=== PATIENT | female | born 1960 | race Caucasian/White ===

== ENCOUNTER 2016-10-06 01:47 | Emergency (ER) | payer BC ==
[~2016-10-06 01:47] MED LIST: AMB10 PO; ASAB PO; ATV1 PO; CYANO1000T PO; DIL2TAB PO; HARD NAILS PO; HYZAAR 100/25 T1 TAB PO; LINZESS 290 M290 MCG PO; MAXIMUM D3 PO; METHATAB10 PO; OMEGA-3 KRILL PO; PRILO PO; TOPXL50 PO
[2016-10-06 02:07] LABS: BASOPHILS 0.4 %; BASOPHILS ABSOLUTE 0.02 10/3/uL (0.0-0.16); EOSINOPHILS 3.4 %; EOSINOPHILS ABSOLUTE 0.18 10/3/uL (0.0-0.53); HEMATOCRIT 38.7 % (36.0-48.0); IMMATURE GRANULOCYTES 0.2 %; IMMATURE GRANULOCYTES ABSOLUTE 0.01 10/3/uL (0.0-0.11); LYMPHOCYTES ABSOLUTE 2.31 10/3/uL (0.67-4.30); MEAN CORPUS HGB CONC 33.6 g/dL (32.0-36.0); MEAN PLATELET VOLUME 8.7 fL (9.2-13.0); MONOCYTES 9.9 %; MONOCYTES ABSOLUTE 0.52 10/3/uL (0.21-1.20); NEUTROPHILS 42.1 %; NEUTROPHILS ABSOLUTE 2.21 10/3/uL (2.02-8.40); PLATELET COUNT 273 10/3/uL (150-400); RBC DISTRIBUTION WIDTH 13.9 % (12.0-16.0)
[2016-10-06 02:12] LABS: ER CBC TAT 0 Hrs 10 MinsNP; MANUAL DIFF NO %; MEAN CORPUSCULAR VOLUME 92.4 fL (80-100); RED CELL COUNT 4.19 10/6/uL (4.0-5.6); WHITE BLOOD CELLS 5.3 10/3/uL (4.5-10.5)
[2016-10-06 02:22] LABS: BUN (BLOOD UREA NITROGEN) 10 MG/DL (6-23); CALCIUM, SERUM 8.7 MG/DL (8.5-10.4); CHLORIDE, SERUM 96 MMOL/L (96-112); CO2 (CARBON DIOXIDE) 33 MMOL/L (24-34); GFR AFRICAN AMERICAN 116 ML/MIN (>=60); GFR NON AFRICAN AMERICAN 100 ML/MIN (>=60); GLUCOSE, SERUM 82 MG/DL (60-99); POTASSIUM, SERUM 3.3 MMOL/L (3.5-5.3); SODIUM, SERUM 137 MMOL/L (135-148)
== END 2016-10-06 04:19 | disposition home or self-care (01) ==
LOC: ER 01:47
PROVIDERS: Nurse Practitioner Acute Care
DX: R51 Headache (principal); I10 Essential (primary) hypertension; K21.9 Gastro-esophageal reflux disease without esophagitis; Z88.5 Allergy status to narcotic agent; Z79.82 Long term (current) use of aspirin; Z79.899 Other long term (current) drug therapy
CPT/HCPCS: 70450; 80048; 85025; 93005; 96374; 96375; 96376; 99285; J1200; J2765

== ENCOUNTER 2016-10-07 07:06 | Observation (INO) | payer BC ==
[2016-09-29 11:01] LABS: HEMATOCRIT 36.8 % (36.0-48.0); HEMOGLOBIN 12.3 g/dL (12.0-16.0)
[2016-09-29 11:16] LABS: BUN (BLOOD UREA NITROGEN) 9 MG/DL (6-23); CALCIUM, SERUM 9.1 MG/DL (8.5-10.4); CHLORIDE, SERUM 94 MMOL/L (96-112); CO2 (CARBON DIOXIDE) 32 MMOL/L (24-34); CREATININE 0.54 MG/DL (0.55-1.02); GFR AFRICAN AMERICAN 121 ML/MIN (>=60); GFR NON AFRICAN AMERICAN 104 ML/MIN (>=60); GLUCOSE, SERUM 98 MG/DL (60-99); POTASSIUM, SERUM 3.5 MMOL/L (3.5-5.3); SODIUM, SERUM 135 MMOL/L (135-148)
--- NOTE | ~2016-10-07 | OP ---
Record Of Operation [facility] [address] [place]. [address] NAME: BRADEN TSAI : 56 STATUS : ADM IN PAT#: [id number] AGE: 56 ADM/REG DATE : 10/07/16 MR#: [id number] REPORT SERV DATE: 10/08/16 DICTATED BY: SHERYL SULLIVAN II DATE: 10/08/16 REPORT STATUS : Draft TRANSCRIBED BY: MODL DATE: 10/08/16 DATE OF PROCEDURE: 10/07/2016 PREOPERATIVE DIAGNOSES: 1. Right upper extremity radiculopathy. 2. C4-7 spondylosis with associated stenosis, foraminal. 3. C6-7 cord compression. POSTOPERATIVE DIAGNOSES: 1. Right upper extremity radiculopathy. 2. C4-7 spondylosis with associated stenosis, foraminal. 3. C6-7 cord compression. PROCEDURE: 1. C4-5, C5-6, C6-7 anterior interbody arthrodesis. 2. Application of prosthetic devices at C4-5, C5-6, C6-7. 3. Use of anterior instrumentation, C4-7 (four segments). 4. Use of allograft substitute and bone marrow aspirate. 5. Use of the microscope. SURGEON: Sheryl Sullivan M.D. FLUIDS: 1200 mL LR. ESTIMATED BLOOD LOSS: 25 mL. DRAINS: One drain. COMPLICATIONS: No complications. ANTIBIOTIC: Preoperatively. IMPLANTS: Alphatec. PREOPERATIVE HISTORY: This is a very friendly 56-year-old female, who is known to me through the office but also her , who is a patient and has been a patient for over 10 years. She reports a significant history of radiating pain from the neck into the arm. The pain radiates into the periscapular region and down the arm in a radicular manner. She reports associated numbness and tingling. We discussed the pros and cons of continuing nonoperative care versus surgery. She and I discussed this as well as with her , Ed. We discussed the fact that risks of course were present but overall, the surgery had a reasonable safety profile. We discussed the risk of difficulty swallowing, vocal cord paralysis, spinal cord injury, and a small chance of stroke and . We discussed the ability of the surgery to help. Specifically, we discussed the rates of success versus failure for the surgery to help arm pain and neck pain respectively. Record Of Operation [facility] [address] [place]. [address] NAME: BRADEN TSAI : 56 STATUS : ADM IN PAT#: [id number] AGE: 56 ADM/REG DATE : 10/07/16 MR#: [id number] REPORT SERV DATE: 10/08/16 DICTATED BY: SHERYL SULLIVAN II DATE: 10/08/16 REPORT STATUS : Draft TRANSCRIBED BY: FER DATE: 10/08/16 DESCRIPTION OF PROCEDURE: After informed consent was obtained, the patient was brought to the operating room at her request and general anesthesia achieved. She was placed in the supine position, and the neck and iliac crest were prepped and draped in a sterile fashion. Then, 5 mL of bone marrow were aspirated from the iliac crest, followed by a right-sided longitudinal incision. The interval was explored and the deep cervical fascia incised. The subperiosteal exposure was completed, and the [employer] retractor was placed underneath the longus colli muscles. Next, the [place] pins were placed, followed by use of the microscope. Under microscopic visualization, the C4-5 level was addressed with discectomy. The pituitary rongeurs, Kerrison rongeurs, and the curettes were used to create parallel endplates as well as remove the posterior vertebral body osteophytes. The anterior canal was now well decompressed with removal of the osteophytes and the posterior longitudinal ligament. The foraminotomies were completed. There was significant osteophytosis, especially on the right. The prosthetic device was now chosen and placed at C4-5. This contained allograft substitute and bone marrow aspirate. Next, the C5-6 level was addressed in a similar manner. There was even worse hypertrophy of the uncinate joint on the right side at C5-6. The disc was now removed, and the severe foraminal osteophytes were removed to decompress the exiting nerve roots. The cord was also decompressed after removal of the posterior longitudinal ligament. The prosthetic device was then trialed and chosen and placed at C5-6. Once again, this contained allograft substitute and bone marrow aspirate. Lastly, the C6-7 level was addressed in a similar manner with discectomy, endplate preparation as well as removal of the posterior longitudinal ligament and removal of the significant foraminal osteophytes. The prosthetic device was placed at C6-7. After the [place] pins were removed, the anterior fixation device was placed. Please note, this was a separate plate and screw construct, and two screws were applied into C4, C5, C6, and C7. Multiplanar imaging confirmed acceptable placement of the implants. A deep drain was placed secondary to mild cancellous bone bleeding and the standard closure performed and the patient extubated and transferred to PACU in stable condition. I spoke with her as well as her son and daughter and extended family afterwards. We had a good discussion, and I showed them the intraoperative fluoroscopy image, giving them the details of the intraoperative findings. RILEY/FER Sheryl Sullivan II, M.D. / [id number]
[2016-10-09] MEDS ORDERED: DSS PO (10:53)
[2016-10-09] MEDS ORDERED: MSCONT15 PO (10:59)
[2016-10-09] MEDS ORDERED: V5 PO (11:00)
== END 2016-10-09 13:03 | disposition home or self-care (01) ==
LOC: SDC 07:06 → 1SO 14:39
PROVIDERS: Orthopaedic Surgery
PROC: 0RG20A0 Fusion of 2 or more Cervical Vertebral Joints with Interbody Fusion Device, Anterior Approach, Anterior Column, Open Approach (ICD-10-PCS; 2016-10-07)
PROC: 0RB30ZZ Excision of Cervical Vertebral Disc, Open Approach (ICD-10-PCS; 2016-10-07)
PROC: 079T3ZX Drainage of Bone Marrow, Percutaneous Approach, Diagnostic (ICD-10-PCS; 2016-10-07)
PROC: 0RG20K0 Fusion of 2 or more Cervical Vertebral Joints with Nonautologous Tissue Substitute, Anterior Approach, Anterior Column, Open Approach (ICD-10-PCS; principal; 2016-10-07 08:45)
DX: M47.22 Other spondylosis with radiculopathy, cervical region (principal); M48.02 Spinal stenosis, cervical region; G47.33 Obstructive sleep apnea (adult) (pediatric); I10 Essential (primary) hypertension; G89.29 Other chronic pain; F41.9 Anxiety disorder, unspecified; Z86.73 Personal history of transient ischemic attack (TIA), and cerebral infarction without residual deficits; K21.9 Gastro-esophageal reflux disease without esophagitis; Z88.6 Allergy status to analgesic agent; Z88.8 Allergy status to other drugs, medicaments and biological substances; Z79.899 Other long term (current) drug therapy; Z85.820 Personal history of malignant melanoma of skin; Z98.890 Other specified postprocedural states
CPT/HCPCS: 80048; 82962; 85014; 85018; 87641; 88304; 88311; 93005; 96374; 96375; 96376; A9270-GY; C1713; G0378; J0690; J0735; J1170; J2250; J2370; J2405; J2710; J3010